=== PATIENT | male | born 1990 ===

== ENCOUNTER 2025-02-28 18:43 | Emergency (ER) | payer BC ==
[~2025-02-28 18:43] MED LIST: Iopamidol 300 61% 100 ML VIAL FS ONE
[2025-02-28 21:04] LABS: #Basophils 0.12 10x3/uL (0.0-0.2); #Eosinophils 0.10 10x3/uL (0.0-0.5); #Monocytes 2.04 10x3/uL (0.0-1.1); #Neutrophils 12.81 10x3/uL (1.5-8.4); %Basophils 0.6 % (0.0-2.0); %Eosinophils 0.5 % (0.0-6.0); %Lymphocytes 15.5 % (18.0-47.0); %Monocytes 11.0 % (0.0-10.0); %Neutrophils 69.0 % (40.0-75.0); Hematocrit 47.3 % (38.8-50.0); Hemoglobin 15.7 g/dL (13.5-17.5); Mean Corpuscular Hemoglobin 29.3 pg (27.0-33.0); Mean Corpuscular Volume 88.2 fL (81.2-95.1); Platelet Count 429 10x3/uL (150-450); Red Blood Cell (RBC) Count 5.36 10x6/uL (4.32-5.72); White Blood Cell (WBC) Count 18.59 10x3/uL (3.5-10.5)
[2025-02-28] MEDS ORDERED: Ketorolac Tromethamine 30 MG (1 mL) VIAL ONE (21:06)
[2025-02-28 21:09] LABS: MONO NEGATIVE CONTROL ZONE White (Negative) (White); Mononucleosis NEGATIVE (NEGATIVE)
[2025-02-28 21:11] LABS: MONO POSITIVE CONTROL Pink Line (Positive) (PINK/RED)
[2025-02-28 21:18] LABS: ALT (SGPT) 32 U/L (Less than 45); AST (SGOT) 15 U/L (11-34); Albumin 3.8 g/dL (3.1-4.5); Alkaline Phosphatase 85 U/L (40-110); Anion Gap 14 mmol/L (10-20); BUN (Urea Nitrogen) 10 mg/dL (8.9-20.6); Bilirubin, Total 0.5 mg/dL (0.3-1.2); Calc. Creatinine Clearance 0 mL/min (70-130); Calcium 9.8 mg/dL (7.8-10.44); Carbon Dioxide 29 mmol/L (22-29); Chloride 99 mmol/L (98-107); Globulin 4.7 g/dL (2.4-3.5); Glucose 99 mg/dL (70-105); Potassium 3.5 mmol/L (3.5-5.1); Sodium 138 mmol/L (136-145)
[2025-02-28] MEDS ORDERED: Dexamethasone 10 MG/ML VIAL ONE (22:28)
== END 2025-02-28 23:56 | disposition short-term general hospital (02) ==
LOC: CSHERS 18:43
DX: A41.9 Sepsis, unspecified organism (principal); J36 Peritonsillar abscess; F17.210 Nicotine dependence, cigarettes, uncomplicated; Z79.899 Other long term (current) drug therapy
CPT/HCPCS: 70491; 80053; 83605; 85025; 86308; 87040; 87430; 96374; 96375; J0295; J1100; J1885; Q9967